=== PATIENT | male | born 1965 | race Caucasian/White ===

== ENCOUNTER 2021-11-29 01:16 | Emergency (ER) | payer SELFPAY ==
[~2021-11-29] VITALS: Ht 170.2 cm; Wt 103.2 kg
[2021-11-29] MEDS ORDERED: LIDOCAINE 5% TRANSDERMAL PATCH TD ONE (01:30)
[2021-11-29] MEDS ORDERED: KETOROLAC TROMETHAMINE 30 MG/ML VIAL IM ONE (01:30)
[2021-11-29 05:59] VITALS: BP 125/60
[2021-11-29 09:56] LABS: GLUCOMETER DEV NAME(LOC) ERT.5; GLUCOSE,POINT OF CARE 77 MG/DL (70-110)
== END 2021-11-29 06:00 | disposition home or self-care (01) ==
LOC: EMS 01:18
DX: M54.50 Low back pain, unspecified (principal); F10.10 Alcohol abuse, uncomplicated; E11.9 Type 2 diabetes mellitus without complications; I10 Essential (primary) hypertension
CPT/HCPCS: 82962; 96372; 99283; J1885

== ENCOUNTER 2022-04-04 19:26 | Emergency (ER) | payer OTHER ==
[~2022-04-04] VITALS: Ht 170.2 cm; Wt 100.0 kg
[2022-04-04 19:56] LABS: GLUCOSE,POINT OF CARE 106 MG/DL (70-110)
[2022-04-04] MEDS ORDERED: ACETAMINOPHEN 325 MG TABLET PO ONE (20:45)
[2022-04-04 21:27] LABS: HEMATOCRIT 37.4 % (41-53); HEMOGLOBIN 12.8 g/dL (13.5-17.5); LYMPHOCYTES % (AUTO) 19.9 % (22.0-44.0); MEAN CORPUSCULAR HGB CONC 34.2 G/dL (31.0-37.0); MEAN CORPUSCULAR VOLUME 91 fL (80-100); NEUTROPHILS % (AUTO) 66.9 % (40.0-70.0); PLATELET COUNT (AUTO) 115 K/uL (150-450); RED BLOOD CELL COUNT(AUTO) 4.13 MIL/uL (4.50-5.90); RED CELL DISTRIBUTION WIDTH 14.7 % (11.5-14.5)
[2022-04-04 21:28] LABS: BASOPHILS % (AUTO) 0.4 % (0.0-2.0); EOSINOPHILS % (AUTO) 1.8 % (1.0-6.0); LYMPHOCYTES # (AUTO) 1.1 K/uL (1.0-4.8); MONOCYTES # (AUTO) 0.6 K/uL (0.1-1.0); NEUTROPHILS # (AUTO) 3.7 K/uL (1.8-7.7)
[2022-04-04 21:36] LABS: ANION GAP -2 mmol/L (8-16); CALCIUM, TOTAL 8.5 mg/dL (8.8-10.5); CARBON DIOXIDE 24 mmol/L (22-29); CHLORIDE 108 mmol/L (98-107); CREATININE 1.12 mg/dL (0.60-1.30); GLOMERULAR FILTR. RATE CALC > 60 mL/min (>60); GLUCOSE,RANDOM 112 mg/dL (70-110); POTASSIUM 3.8 mmol/L (3.5-5.1); SODIUM SERUM 130 mmol/L (136-145); UREA NITROGEN, BLOOD 21 mg/dL (7-18)
[2022-04-04 21:42] LABS: ALANINE AMINOTRANSFERASE 34 U/L (12-78); ALBUMIN 3.4 g/dL (3.4-5.0); ALKALINE PHOSPHATASE 87 U/L (46-116); ASPARTATE AMINOTRANSFERASE 19 U/L (15-37); BILIRUBIN,TOTAL 0.2 mg/dL (0.1-1.0); TOTAL PROTEIN, SERUM 6.9 g/dL (6.4-8.2)
[2022-04-04 23:02] LABS: APPEARANCE,URINE CLEAR (CLEAR); BILIRUBIN,URINE NEGATIVE (NEGATIVE); GLUCOSE, URINE (UA) NEGATIVE (NEGATIVE); KETONES,URINE NEGATIVE (NEGATIVE); LEUKOCYTE ESTERASE ,URINE SMALL (NEGATIVE); NITRATE,URINE NEGATIVE (NEGATIVE); OCCULT BLOOD,URINE NEGATIVE (NEGATIVE); PH,URINE 5.5 (5.0-8.0); PROTEIN,URINE NEGATIVE (NEGATIVE); SPECIFIC GRAVITIY, URINE 1.016 (1.003-1.030); UROBILINOGEN,URINE <=1.0 mg/dL (<=1.0)
[2022-04-04 23:13] LABS: BACTERIA,URINE Few /HPF (None Seen); RBC,URINE 0-2 /HPF (0-2); SQUAMOUS EPITHELIAL CELL,UR Rare /LPF (None Seen)
[2022-04-05] MEDS ORDERED: DOXY100C51 PO (00:39)
[2022-04-05 00:52] VITALS: BP 16/88
== END 2022-04-05 00:54 | disposition home or self-care (01) ==
LOC: EDBD 19:26 → EMS 19:26
DX: N45.2 Orchitis (principal); E11.9 Type 2 diabetes mellitus without complications; I10 Essential (primary) hypertension
CPT/HCPCS: 76870; 80053; 81001; 82962; 83605; 85025; 87040; 87086; 87491; 87591; 99284

== ENCOUNTER 2022-09-23 16:02 | Inpatient (IN) | payer MEDICAID, OTHER ==
[~2022-09-23] VITALS: Ht 167.6 cm; Wt 105.2 kg
[~2022-09-23 16:02] MED LIST: DOXY100C51 PO
[2022-09-23 17:01] LABS: BASOPHILS % (AUTO) 0.6 % (0.0-2.0); EOSINOPHILS % (AUTO) 0.7 % (1.0-6.0); HEMATOCRIT 46.4 % (41-53); HEMOGLOBIN 15.8 g/dL (13.5-17.5); LYMPHOCYTES # (AUTO) 1.6 K/uL (1.0-4.8); MEAN CORPUSCULAR HEMOGLOBIN 31.1 pg (26.0-34.0); MEAN CORPUSCULAR HGB CONC 33.9 G/dL (31.0-37.0); MEAN CORPUSCULAR VOLUME 92 fL (80-100); MONOCYTES # (AUTO) 0.9 K/uL (0.1-1.0); MONOCYTES % (AUTO) 9.6 % (2.0-9.0); NEUTROPHILS # (AUTO) 6.3 K/uL (1.8-7.7); NEUTROPHILS % (AUTO) 71.1 % (40.0-70.0); PLATELET COUNT (AUTO) 187 K/uL (150-450); RED BLOOD CELL COUNT(AUTO) 5.06 MIL/uL (4.50-5.90); RED CELL DISTRIBUTION WIDTH 13.9 % (11.5-14.5)
[2022-09-23 17:10] LABS: ANION GAP 8 mmol/L (8-16); CALCIUM, TOTAL 9.6 mg/dL (8.8-10.5); CARBON DIOXIDE 29 mmol/L (22-29); CHLORIDE 100 mmol/L (98-107); CREATININE 0.98 mg/dL (0.60-1.30); GLOMERULAR FILTR. RATE CALC > 60 mL/min (>60); GLUCOSE,RANDOM 128 mg/dL (70-110); POTASSIUM 4.1 mmol/L (3.5-5.1); SODIUM SERUM 137 mmol/L (136-145); UREA NITROGEN, BLOOD 20 mg/dL (7-18)
[2022-09-23 17:15] LABS: ALANINE AMINOTRANSFERASE 55 U/L (12-78); ALBUMIN 4.5 g/dL (3.4-5.0); ALKALINE PHOSPHATASE 86 U/L (46-116); ASPARTATE AMINOTRANSFERASE 33 U/L (15-37); BILIRUBIN,TOTAL 0.9 mg/dL (0.1-1.0); TOTAL PROTEIN, SERUM 9.4 g/dL (6.4-8.2)
[2022-09-23 17:33] LABS: COVID AG,FIA SOURCE NASOPHARYNGEAL
[2022-09-23 17:38] LABS: AMPHET/METH SCREEN,URINE POSITIVE (NEGATIVE); BARBITURATE SCREEN, URINE NEGATIVE (NEGATIVE); BENZODIAZEPINES SCREEN,URINE NEGATIVE (NEGATIVE); CANNABINOID SCREEN,URINE NEGATIVE (NEGATIVE); COCAINE SCREEN,URINE NEGATIVE (NEGATIVE); METHADONE SCREEN, URINE NEGATIVE (NEGATIVE); OPIATE SCREEN,URINE NEGATIVE (NEGATIVE); PHENCYCLIDINE SCREEN,URINE NEGATIVE (NEGATIVE)
[2022-09-24] MEDS ORDERED: ZOLPIDEM TARTRATE 10 MG TABLET PO PRN (01:15)
[2022-09-24 01:20] VITALS: BP 154/104
[2022-09-24] MEDS: LORazepam 2 MG TABLET PO PRN ×2 (01:39→19:55)
[2022-09-24 01:51] LABS: GLUCOMETER DEV NAME(LOC) 3EX.2; GLUCOSE,POINT OF CARE 137 MG/DL (70-110)
[2022-09-24] MEDS ORDERED: ALBUTEROL SULFATE HFA 90 MCG/PUFF 8 GM INHALER IH PRN (06:45)
[2022-09-24] MEDS ORDERED: MAG HYDROX/AL HYDROX/SIMETH ES 30 ML SUSPENSION UDCUP PO PRN (06:45)
[2022-09-24] MEDS ORDERED: OMEPRAZOLE 20 MG CAPSULE PO PRN (06:45)
[2022-09-24] MEDS ORDERED: PETROLATUM,WHITE 28 GM JELLY TP PRN (06:45)
[2022-09-24] MEDS ORDERED: ACETAMINOPHEN 325 MG TABLET PO PRN (06:45)
[2022-09-24] MEDS ORDERED: BENZOCAINE/MENTHOL LOZENGE PO PRN (06:45)
[2022-09-24] MEDS ORDERED: MAGNESIUM HYDROXIDE SUSPENSION 30 ML UDCUP PO PRN (06:45)
[2022-09-24] MEDS ORDERED: IBUPROFEN 600 MG TABLET PO PRN (06:45)
[2022-09-24] MEDS ORDERED: BACITRACIN 28 GM OINTMENT TP PRN (06:45)
[2022-09-24] MEDS ORDERED: DOCUSATE SODIUM 100 MG CAPSULE PO PRN (06:45)
[2022-09-24] MEDS ORDERED: CloNIDine HCL 0.1 MG TABLET PO PRN (06:45)
[2022-09-24] MEDS ORDERED: LOPERAMIDE HCL 2 MG CAPSULE PO PRN (06:45)
[2022-09-24] MEDS ORDERED: ONDANSETRON HCL 4 MG TABLET PO PRN (06:45)
[2022-09-24] MEDS ORDERED: DEXTROSE 50%-WATER 25 GM/50 ML SYRINGE IVP PRN (07:45)
[2022-09-24 08:48] VITALS: BP 153/94
[2022-09-24 16:15] VITALS: BP 140/79
[2022-09-24] MEDS: LISINOPRIL 20 MG TABLET PO SCH (17:17)
[2022-09-24 18:17] VITALS: BP 138/82
[2022-09-24 19:17] VITALS: BP 142/88
[2022-09-24] MEDS: HALOPERIDOL 5 MG TABLET PO PRN (19:55)
[2022-09-24 20:35] LABS: GLUCOMETER DEV NAME(LOC) 3EX.2; GLUCOSE,POINT OF CARE 125 MG/DL (70-110)
[2022-09-24] MEDS: OLANZapine 10 MG TABLET PO SCH (20:49)
[2022-09-24 22:14] VITALS: BP 162/97
[2022-09-25 05:52] LABS: GLUCOMETER DEV NAME(LOC) 3EX.2; GLUCOSE,POINT OF CARE 101 MG/DL (70-110)
[2022-09-25 08:00] VITALS: BP 139/92
[2022-09-25 08:36] LABS: BASOPHILS % (AUTO) 0.1 % (0.0-2.0); EOSINOPHILS % (AUTO) 1.1 % (1.0-6.0); LYMPHOCYTES # (AUTO) 1.3 K/uL (1.0-4.8); LYMPHOCYTES % (AUTO) 19.9 % (22.0-44.0); MEAN CORPUSCULAR HEMOGLOBIN 31.9 pg (26.0-34.0); MEAN CORPUSCULAR HGB CONC 34.8 G/dL (31.0-37.0); MEAN CORPUSCULAR VOLUME 92 fL (80-100); MONOCYTES # (AUTO) 0.5 K/uL (0.1-1.0); NEUTROPHILS # (AUTO) 4.8 K/uL (1.8-7.7); NEUTROPHILS % (AUTO) 71.9 % (40.0-70.0); PLATELET COUNT (AUTO) 147 K/uL (150-450); RED BLOOD CELL COUNT(AUTO) 4.68 MIL/uL (4.50-5.90); RED CELL DISTRIBUTION WIDTH 13.9 % (11.5-14.5)
[2022-09-25 08:48] LABS: HEMOGLOBIN A1C 6.2 % (3.8-5.6)
[2022-09-25 09:03] LABS: ALANINE AMINOTRANSFERASE 56 U/L (12-78); ALBUMIN 3.6 g/dL (3.4-5.0); ALKALINE PHOSPHATASE 89 U/L (46-116); ANION GAP 5 mmol/L (8-16); ASPARTATE AMINOTRANSFERASE 43 U/L (15-37); BILIRUBIN,TOTAL 0.4 mg/dL (0.1-1.0); CALCIUM, TOTAL 8.7 mg/dL (8.8-10.5); CARBON DIOXIDE 29 mmol/L (22-29); CHLORIDE 106 mmol/L (98-107); CHOL/HDL RATIO 2.4 (4.2-7.3); CHOLESTEROL 94 mg/dL (131-200); CREATININE 0.96 mg/dL (0.60-1.30); FREE T4 (FREE THYROXINE) 1.21 ng/dL (0.76-1.46); GLOMERULAR FILTR. RATE CALC > 60 mL/min (>60); GLUCOSE,RANDOM 123 mg/dL (70-110); HDL CHOLESTEROL 39 mg/dL (40-60); LDL CHOL (CALC.) 36 mg/dL (0-130); POTASSIUM 3.8 mmol/L (3.5-5.1); SODIUM SERUM 140 mmol/L (136-145); THYROID STIMULATING HORMONE 2.93 uIU/mL (0.36-3.74); TOTAL PROTEIN, SERUM 7.8 g/dL (6.4-8.2); TRIGLYCERIDES 93 mg/dL (15-150); UREA NITROGEN, BLOOD 21 mg/dL (7-18)
[2022-09-25] MEDS: LISINOPRIL 20 MG TABLET PO SCH (09:39)
[2022-09-25 16:17] VITALS: BP 159/59
[2022-09-25 20:51] LABS: GLUCOMETER DEV NAME(LOC) 3EX.2; GLUCOSE,POINT OF CARE 110 MG/DL (70-110)
[2022-09-25] MEDS: HALOPERIDOL 5 MG TABLET PO PRN (21:12)
[2022-09-25] MEDS: OLANZapine 10 MG TABLET PO SCH (21:12)
[2022-09-25] MEDS: LORazepam 2 MG TABLET PO PRN (21:12)
[2022-09-25 21:36] VITALS: BP 125/70
[2022-09-26 06:06] LABS: GLUCOMETER DEV NAME(LOC) 3EX.2; GLUCOSE,POINT OF CARE 122 MG/DL (70-110)
[2022-09-26] MEDS: LISINOPRIL 20 MG TABLET PO SCH (08:36)
[2022-09-26 08:57] VITALS: BP 154/105
[2022-09-26 11:56] LABS: GLUCOMETER DEV NAME(LOC) 3EX.2; GLUCOSE,POINT OF CARE 110 MG/DL (70-110)
[2022-09-26 16:04] VITALS: BP 134/76
[2022-09-26 16:46] LABS: GLUCOMETER DEV NAME(LOC) 3EX.2; GLUCOSE,POINT OF CARE 114 MG/DL (70-110)
[2022-09-26 21:03] VITALS: BP 144/80
[2022-09-26 21:06] LABS: GLUCOMETER DEV NAME(LOC) 3EX.2; GLUCOSE,POINT OF CARE 123 MG/DL (70-110)
[2022-09-26] MEDS: HALOPERIDOL 5 MG TABLET PO PRN (21:24)
[2022-09-26] MEDS: LORazepam 2 MG TABLET PO PRN (21:24)
[2022-09-26] MEDS: OLANZapine 10 MG TABLET PO SCH (21:24)
[2022-09-27 05:47] LABS: GLUCOMETER DEV NAME(LOC) 3EX.2; GLUCOSE,POINT OF CARE 118 MG/DL (70-110)
[2022-09-27] MEDS: LISINOPRIL 20 MG TABLET PO SCH (09:19)
[2022-09-27 10:10] VITALS: BP 146/82
[2022-09-27 11:21] LABS: GLUCOMETER DEV NAME(LOC) 3EX.2; GLUCOSE,POINT OF CARE 114 MG/DL (70-110)
[2022-09-27 16:42] VITALS: BP 129/73
[2022-09-27 17:02] LABS: GLUCOMETER DEV NAME(LOC) 3EX.2; GLUCOSE,POINT OF CARE 103 MG/DL (70-110)
[2022-09-27] MEDS: OLANZapine 10 MG TABLET PO SCH (20:52)
[2022-09-27] MEDS: INSULIN LISPRO 100 UNITS/ML SQ PRN (20:54)
[2022-09-27 21:00] VITALS: BP 141/71
[2022-09-27 21:41] LABS: GLUCOMETER DEV NAME(LOC) 3EX.2; GLUCOSE,POINT OF CARE 152 MG/DL (70-110)
[2022-09-28] MEDS: INSULIN LISPRO 100 UNITS/ML SQ PRN ×3 (06:42→17:47)
[2022-09-28 07:02] LABS: GLUCOMETER DEV NAME(LOC) 3EX.2; GLUCOSE,POINT OF CARE 116 MG/DL (70-110)
[2022-09-28 08:43] VITALS: BP 134/83
[2022-09-28] MEDS: LISINOPRIL 20 MG TABLET PO SCH (10:25)
[2022-09-28 11:41] LABS: GLUCOMETER DEV NAME(LOC) 3EX.2; GLUCOSE,POINT OF CARE 128 MG/DL (70-110)
[2022-09-28 16:30] VITALS: BP 149/80
[2022-09-28 17:16] LABS: GLUCOMETER DEV NAME(LOC) 3E.C; GLUCOSE,POINT OF CARE 116 MG/DL (70-110)
[2022-09-28 20:41] LABS: GLUCOMETER DEV NAME(LOC) 3E.C; GLUCOSE,POINT OF CARE 175 MG/DL (70-110)
[2022-09-28] MEDS: OLANZapine 10 MG TABLET PO SCH (20:54)
[2022-09-28 21:33] VITALS: BP 143/73
[2022-09-29 06:01] LABS: GLUCOMETER DEV NAME(LOC) 3E.C; GLUCOSE,POINT OF CARE 117 MG/DL (70-110)
[2022-09-29 07:15] LABS: COVID AG,FIA SOURCE NASAL SWAB
[2022-09-29] MEDS: LISINOPRIL 20 MG TABLET PO SCH (08:39)
[2022-09-29 09:00] VITALS: BP 150/89
[2022-09-29] MEDS: INSULIN LISPRO 100 UNITS/ML SQ PRN ×2 (12:04→20:47)
[2022-09-29 12:06] LABS: GLUCOMETER DEV NAME(LOC) 3E.C; GLUCOSE,POINT OF CARE 148 MG/DL (70-110)
[2022-09-29 16:17] VITALS: BP 145/83
[2022-09-29 17:42] LABS: GLUCOMETER DEV NAME(LOC) 3E.C; GLUCOSE,POINT OF CARE 90 MG/DL (70-110)
[2022-09-29 20:36] LABS: GLUCOMETER DEV NAME(LOC) 3E.C; GLUCOSE,POINT OF CARE 165 MG/DL (70-110)
[2022-09-29] MEDS: OLANZapine 10 MG TABLET PO SCH (20:39)
[2022-09-29 22:30] VITALS: BP 160/86
[2022-09-30 06:01] LABS: GLUCOMETER DEV NAME(LOC) 3E.C; GLUCOSE,POINT OF CARE 118 MG/DL (70-110)
[2022-09-30 08:07] VITALS: BP 151/87
[2022-09-30] MEDS: LISINOPRIL 20 MG TABLET PO SCH (08:51)
[2022-09-30 09:46] VITALS: BP 151/87
[2022-09-30 12:06] LABS: GLUCOMETER DEV NAME(LOC) 3E.C; GLUCOSE,POINT OF CARE 121 MG/DL (70-110)
[2022-09-30 16:05] VITALS: BP 143/84
[2022-09-30 17:17] LABS: GLUCOMETER DEV NAME(LOC) 3E.C; GLUCOSE,POINT OF CARE 124 MG/DL (70-110)
[2022-09-30 20:51] LABS: GLUCOMETER DEV NAME(LOC) 3E.C; GLUCOSE,POINT OF CARE 190 MG/DL (70-110)
[2022-09-30] MEDS: OLANZapine 10 MG TABLET PO SCH (20:52)
[2022-09-30] MEDS: HALOPERIDOL 5 MG TABLET PO PRN (20:52)
[2022-09-30] MEDS: LORazepam 2 MG TABLET PO PRN (20:53)
[2022-09-30] MEDS: INSULIN LISPRO 100 UNITS/ML SQ PRN (21:02)
[2022-09-30 21:17] VITALS: BP 133/74
[2022-10-01 05:36] LABS: GLUCOMETER DEV NAME(LOC) 3E.C; GLUCOSE,POINT OF CARE 108 MG/DL (70-110)
[2022-10-01] MEDS: LISINOPRIL 20 MG TABLET PO SCH (09:52)
[2022-10-01 10:00] VITALS: BP 151/103
[2022-10-01 11:56] LABS: GLUCOMETER DEV NAME(LOC) 3E.C; GLUCOSE,POINT OF CARE 98 MG/DL (70-110)
[2022-10-01] MEDS ORDERED: OLAN10 PO (17:01)
[2022-10-01] MEDS: INSULIN LISPRO 100 UNITS/ML SQ PRN ×2 (17:07→21:07)
[2022-10-01 17:16] LABS: GLUCOMETER DEV NAME(LOC) 3E.C; GLUCOSE,POINT OF CARE 158 MG/DL (70-110)
[2022-10-01 20:45] VITALS: BP 157/88
[2022-10-01 20:46] LABS: GLUCOMETER DEV NAME(LOC) 3E.C; GLUCOSE,POINT OF CARE 148 MG/DL (70-110)
[2022-10-01] MEDS: OLANZapine 10 MG TABLET PO SCH (21:09)
[2022-10-01] MEDS: LORazepam 2 MG TABLET PO PRN (21:09)
[2022-10-01] MEDS: HALOPERIDOL 5 MG TABLET PO PRN (21:10)
[2022-10-02 05:36] LABS: GLUCOMETER DEV NAME(LOC) 3E.C; GLUCOSE,POINT OF CARE 116 MG/DL (70-110)
[2022-10-02] MEDS ORDERED: LISI-894 PO (08:16)
[2022-10-02] MEDS: LISINOPRIL 20 MG TABLET PO SCH (09:22)
[2022-10-02 09:30] VITALS: BP 144/92
== END 2022-10-02 15:40 | disposition home or self-care (01) | DRG 750 ==
LOC: EMS 16:05 → 3EI 09-24 01:00
PROVIDERS: ADMIT Psychiatry & Neurology Psychiatry; ATTEND Psychiatry & Neurology Psychiatry
DX: F25.9 Schizoaffective disorder, unspecified (principal); E11.9 Type 2 diabetes mellitus without complications; R45.851 Suicidal ideations; F41.9 Anxiety disorder, unspecified; G47.00 Insomnia, unspecified; I10 Essential (primary) hypertension; Z20.822 Contact with and (suspected) exposure to COVID-19; K59.00 Constipation, unspecified; Z91.14 Patient's other noncompliance with medication regimen; Z79.899 Other long term (current) drug therapy
CPT/HCPCS: 80053; 80061; 80307; 82962; 83036; 84436; 84439; 84443; 85025; 87081; 99285; G0480